=== PATIENT | male | born 1945 | race Hispanic/Latino ===

== ENCOUNTER 2019-01-13 12:31 | Emergency (ER) | payer OTHER ==
[2019-01-13 13:34] LABS: BASOPHILS % (AUTO) 0.4 % (0.0-5.0); EOSINOPHILS % (AUTO) 4.4 % (0.0-8.0); HEMATOCRIT 32.1 % (42-54); LYMPHOCYTES % (AUTO) 16.7 % (21.0-51.0); MEAN CORPUSCULAR HEMOGLOBIN 32.7 pg (27.0-33.0); MEAN CORPUSCULAR HGB CONC 34.3 g/dL (32.0-36.0); MEAN CORPUSCULAR VOLUME 95.3 fL (79-99); MONOCYTES % (AUTO) 6.7 % (3.0-13.0); NEUTROPHILS % (AUTO) 71.8 % (40.0-77.0); PLATELET COUNT (AUTO) 60 K/uL (130-400); RED BLOOD CELL COUNT(AUTO) 3.37 MIL/uL (4.50-6.20); RED CELL DISTRIBUTION WIDTH 15.3 % (11.0-15.5); WHITE BLOOD COUNT (AUTO) 4.7 K/uL (4.8-10.8)
[2019-01-13 13:43] LABS: CREATININE 0.8 mg/dL (0.5-1.5); POTASSIUM 4.2 mmol/L (3.5-5.1)
[2019-01-13 13:47] LABS: BILIRUBIN,DIRECT 0.4 mg/dL (0.0-0.3); BILIRUBIN,TOTAL 1.1 mg/dL (0.2-1.0); TOTAL PROTEIN, SERUM 6.5 g/dL (6.0-8.3)
[2019-01-13 13:48] LABS: INR 1.28 (0.85-1.15); PARTIAL THROMBOPLASTIN TIME 36.4 SEC (26.3-35.5); PROTHROMBIN TIME 13.4 SEC (9.6-11.6)
[2019-01-13 14:05] LABS: B-TYPE NATRIURETIC PEPTIDE 249 pg/mL (0-100)
== END 2019-01-13 15:44 | disposition home or self-care (01) ==
LOC: EDH 12:31
DX: R18.8 Other ascites (principal); K74.60 Unspecified cirrhosis of liver; R06.00 Dyspnea, unspecified; I10 Essential (primary) hypertension
CPT/HCPCS: 36415; 71045; 80048; 80076; 82140; 83880; 84484; 85025; 85610; 85730

== ENCOUNTER 2019-01-14 10:11 | Emergency (ER) | payer OTHER ==
--- NOTE | 2019-01-14 14:00 | NUR ---
U/S GD PARACENTESIS PROCEDURE PERFORMED BY DR Maria Del Rosario PARRISH. PUNCTURE SITE RLQ AND PATIENT TOLERATED PROCEDURE WELL. TOTAL REMOVED 3.8 LITERS OF CLOUDY YELLOW FLUID. END OF PROCEDURE AT 1345. CATHETER REMOVED AND DRESSING APPLIED. NO BLEEDING NOTED. REPORT GIVEN TO LELE HOWE AND PATIENT TRANSPORTED TO ER 16 VIA STRETCHER AT 1400. AAO X3 WITH NO C/O PAIN.
== END 2019-01-14 15:27 | disposition home or self-care (01) ==
LOC: EDH 10:11
DX: R18.8 Other ascites (principal); K74.69 Other cirrhosis of liver; I10 Essential (primary) hypertension
CPT/HCPCS: 49083; 99285; A4215

== ENCOUNTER → 2019-06-04 | Outpatient (CLI) | payer OTHER ==
[~2019-06-04] VITALS: Ht 175.3 cm; Wt 93.0 kg
[~2019-06-04] MED LIST: REGADENOSON 0.4 MG/5 ML PF SYG IVP SCH
== END | disposition home or self-care (01) ==
LOC: SHCH 09:28
PROVIDERS: ATTEND Internal Medicine Cardiovascular Disease
DX: R06.02 Shortness of breath (principal)
CPT/HCPCS: 78452; 93017; 96374; A9500 ×2; J2785

== ENCOUNTER → 2019-06-08 | Outpatient (CLI) | payer OTHER | END | disposition home or self-care (01) | LOC: SHCH 13:11 | PROVIDERS: ATTEND Internal Medicine Cardiovascular Disease | DX: I08.0 Rheumatic disorders of both mitral and aortic valves (principal) | CPT/HCPCS: 93306 ==

== ENCOUNTER → 2019-08-15 | Outpatient (CLI) | payer OTHER ==
[~2019-08-15] VITALS: Ht 175.3 cm; Wt 93.9 kg
[~2019-08-15] MED LIST changes: +BUDE10.26 IH; +CALC-190 PO; +CEFAZOLIN SODIUM 1 GM VIAL IVP SCH; +CETI10TA57 PO; +CYAN100099 PO; +FERS325 PO; +FINA5TAB41 PO; +FLUT16H NS; +FURO40TA5 PO; +HYDR-3894 PO; +LACHLOT TP; +LACT10SO PO; +LEVO75TA10 PO; +LIDOCAINE PATCH TP; +MONT10TA26 PO; +PANT40TA25 PO; +PROP20TA7 PO; -REGADENOSON 0.4 MG/5 ML PF SYG IVP SCH; +SPIR100T5 PO; +TIOT18CA3 IH; +VITAMIN D PO
[2019-08-15 12:15] LABS: BASOPHILS % (AUTO) 0.6 % (0.0-5.0); EOSINOPHILS % (AUTO) 1.7 % (0.0-8.0); HEMATOCRIT 37.9 % (42-54); LYMPHOCYTES % (AUTO) 8.6 % (21.0-51.0); MEAN CORPUSCULAR HEMOGLOBIN 32.8 pg (27.0-33.0); MEAN CORPUSCULAR VOLUME 96.4 fL (79-99); MONOCYTES % (AUTO) 14.9 % (3.0-13.0); NEUTROPHILS % (AUTO) 69.9 % (40.0-77.0); PLATELET COUNT (AUTO) 50 K/uL (130-400); RED BLOOD CELL COUNT(AUTO) 3.93 MIL/uL (4.50-6.20); RED CELL DISTRIBUTION WIDTH 14.8 % (11.0-15.5); WHITE BLOOD COUNT (AUTO) 7.9 K/uL (4.8-10.8)
[2019-08-15 12:22] LABS: INR 1.29 (0.85-1.15); PROTHROMBIN TIME 13.4 SEC (9.6-11.6)
[2019-08-15 12:24] VITALS: BP 100/56
--- NOTE | 2019-08-16 17:53 | NUR ---
REPORTED ABNORMAL LABS OF PLT [address] SALAZAR'Young, PER MD, PROCEDURE IS CANCELLED, INSTRUCTED TO CALL PT INFORM HIM OF CANCELLATION, PT IS TO SEE PRIMARY DR. POLK AT [facility] AND HAVE PLATELETS INCREASED TO 80,000- 90,[address] SALAZAR'Young FOR PROCEDURE. CALLED AT AT 1750, ALL INFORMATION GIVEN, PT STATED UNDERSTANDING.
== END | disposition home or self-care (01) ==
LOC: DAH 10:00 → EDSTATUS 08-16 10:00
PROVIDERS: ATTEND Orthopaedic Surgery
DX: M17.11 Unilateral primary osteoarthritis, right knee (principal); I10 Essential (primary) hypertension; I08.0 Rheumatic disorders of both mitral and aortic valves
CPT/HCPCS: 36415; 85025; 85610; 87641

== ENCOUNTER 2019-11-15 10:00 | Inpatient (IN) | payer OTHER ==
[~2019-11-15] VITALS: Ht 172.7 cm; Wt 105.1 kg
[~2019-11-15 10:00] MED LIST changes: -BUDE10.26 IH; -CEFAZOLIN SODIUM 1 GM VIAL IVP SCH; -CETI10TA57 PO; -FURO40TA5 PO; -HYDR-3894 PO; +HYDR-4419 PO; -LACHLOT TP; -LIDOCAINE PATCH TP; -PANT40TA25 PO; +PANT40TA54 PO; -VITAMIN D PO
[2019-11-15 11:16] LABS: APPEARANCE,URINE Clear (CLEAR); BILIRUBIN,URINE Small (NEGATIVE); COLOR,URINE Dark Yellow (YELLOW); GLUCOSE, URINE (UA) Negative (NEGATIVE); KETONES,URINE Trace mg/dL (NEGATIVE); LEUKOCYTE ESTERASE ,URINE Negative (NEGATIVE); NITRATE,URINE Negative (NEGATIVE); OCCULT BLOOD,URINE Negative (NEGATIVE); PH,URINE 5.5 (5.0-8.0); PROTEIN,URINE Negative (NEGATIVE)
[2019-11-15 11:26] LABS: BASOPHILS % (AUTO) 0.6 % (0.0-5.0); CREATININE 1.6 mg/dL (0.5-1.5); EOSINOPHILS % (AUTO) 4.5 % (0.0-8.0); HEMATOCRIT 35.3 % (42-54); LYMPHOCYTES % (AUTO) 16.3 % (21.0-51.0); MEAN CORPUSCULAR HEMOGLOBIN 35.4 pg (27.0-33.0); MEAN CORPUSCULAR HGB CONC 34.8 g/dL (32.0-36.0); MEAN CORPUSCULAR VOLUME 101.7 fL (79-99); MONOCYTES % (AUTO) 9.1 % (3.0-13.0); NEUTROPHILS % (AUTO) 66.4 % (40.0-77.0); PLATELET COUNT (AUTO) 68 K/uL (130-400); POTASSIUM 4.5 mmol/L (3.5-5.1); RED BLOOD CELL COUNT(AUTO) 3.47 MIL/uL (4.50-6.20); RED CELL DISTRIBUTION WIDTH 14.9 % (11.0-15.5); WHITE BLOOD COUNT (AUTO) 9.4 K/uL (4.8-10.8)
[2019-11-15 11:53] LABS: INR 1.17 (0.85-1.15); PARTIAL THROMBOPLASTIN TIME 29.9 SEC (26.3-35.5); PROTHROMBIN TIME 12.6 SEC (9.6-11.6)
[2019-11-15 12:26] LABS: BACTERIA,URINE Few /HPF (None Seen); SQUAMOUS EPITHELIAL CELL,UR 0-2 /HPF (0-2)
[2019-11-15 12:27] LABS: RBC,URINE None Seen /HPF (0-1); WBC,URINE None Seen /HPF (0-1)
[2019-11-19 11:59] VITALS: BP 111/56
--- NOTE | 2019-11-19 13:10 | NUR ---
RE: ABNORMAL LABS INFORMED DR VILLA REGARDING PT 12.6/INR 1.17/PTT 29.9, PLT 68, HGB 12.3/HGT 35.3, BUN 22, CREAT 1.6. RECEIVED ORDERS FOR 1 UNIT SINGLE DONOR PLATELETS TO BE AVAILABLE IN OR.
[2019-11-19] MEDS ORDERED: TAMS-1 PO (16:31)
[2019-11-19] MEDS ORDERED: LINA145C PO (16:31)
[2019-11-19] MEDS ORDERED: VITAMIN D3 PO (16:31)
[2019-11-19] MEDS ORDERED: BUDE10.2 IH (16:31)
[2019-11-19] MEDS ORDERED: DICLOFENAC TP (16:31)
[2019-11-19] MEDS ORDERED: FOLI0.8T PO (16:33)
[2019-11-19] MEDS ORDERED: PROCTOCM PR (16:33)
[2019-11-20] VITALS (25 sets, daily range): BP systolic 93–139; BP diastolic 52–78
[2019-11-20] MEDS: CEFAZOLIN SODIUM 1 GM VIAL IVP SCH ×3 (06:00→19:57)
[2019-11-20] MEDS ORDERED: LACTATED RINGERS 1000ML 1,000 ML IV ONE (08:58)
[2019-11-20] MEDS ORDERED: TRANEXAMIC ACID 1000MG/10ML ONE (10:37)
[2019-11-20] MEDS ORDERED: CEFAZOLIN SODIUM 1 GM VIAL ONE ×4 (10:37)
[2019-11-20 10:39] LABS: HEMATOCRIT 33.4 % (42-54); MEAN CORPUSCULAR HEMOGLOBIN 35.6 pg (27.0-33.0); MEAN CORPUSCULAR VOLUME 101.5 fL (79-99); RED BLOOD CELL COUNT(AUTO) 3.29 MIL/uL (4.50-6.20); RED CELL DISTRIBUTION WIDTH 14.6 % (11.0-15.5); WHITE BLOOD COUNT (AUTO) 6.4 K/uL (4.8-10.8)
[2019-11-20 10:48] LABS: CREATININE 1.2 mg/dL (0.5-1.5); POTASSIUM 5.1 mmol/L (3.5-5.1)
[2019-11-20 10:52] LABS: ALBUMIN 2.8 g/dL (3.5-5.0); BILIRUBIN,TOTAL 1.3 mg/dL (0.2-1.0); TOTAL PROTEIN, SERUM 6.2 g/dL (6.0-8.3)
[2019-11-20] MEDS ORDERED: SODIUM CHLORIDE 0.9% 1000ML 1,000 ML IV ONE (11:26)
[2019-11-20] MEDS ORDERED: KETAMINE 50MG/ML SYRINGE 50 MG/ML DISP.SYRIN IV ONE (12:12)
[2019-11-20] MEDS ORDERED: SUCCINYLCHOLINE CHLORIDE 20 MG/ML 10 ML VIAL ONE (12:13)
[2019-11-20] MEDS ORDERED: LIDOCAINE PF 2% 5ML ABBOJECT ONE (12:13)
[2019-11-20] MEDS ORDERED: PROPOFOL 10 MG/ML 20ML VIAL IV ONE (12:13)
[2019-11-20] MEDS ORDERED: ROCURONIUM 10MG/1ML SYR 10 MG/ML ML ONE (12:14)
[2019-11-20] MEDS ORDERED: PHENYLEPHRINE HCL 10 MG/ML 1ML VIAL IV ONE ×2 (12:35→13:01)
[2019-11-20] MEDS ORDERED: EPHEDRINE SULFATE 50 MG/ML AMPULE ONE (12:49)
[2019-11-20] MEDS ORDERED: FENTANYL CITRATE PF 50 MCG/1 ML 2ML VIAL ONE (14:02)
[2019-11-20] MEDS ORDERED: NEOSTIGMINE 5MG/5ML SYR IV ONE (14:29)
[2019-11-20] MEDS ORDERED: ONDANSETRON HCL 4 MG/2 ML VIAL ONE (14:29)
[2019-11-20] MEDS ORDERED: GLYCOPYRROLATE 1 MG/5 ML SYRINGE ONE (14:29)
[2019-11-20] MEDS ORDERED: POTASSIUM CHLORIDE 20 MEQ ERTAB PO PRN (14:30)
[2019-11-20] MEDS ORDERED: ONDANSETRON HCL 4 MG/2 ML VIAL IVP PRN (14:30)
[2019-11-20] MEDS ORDERED: FERROUS FUMARATE 324 MG TABLET PO PRN (14:30)
[2019-11-20] MEDS: ACETAMINOPHEN EXTRA STRENGTH 500 MG TABLET PO SCH ×2 (14:30→23:20)
[2019-11-20] MEDS ORDERED: TRAMADOL HCL 50 MG TABLET PO PRN (14:30)
[2019-11-20] MEDS ORDERED: LIDOCAINE HCL-MPF 1% 2ML VIAL IV PRN (14:30)
[2019-11-20] MEDS ORDERED: POTASSIUM CHLORIDE 10% ELIXIR 20 MEQ/15 ML UDCUP PO PRN (14:30)
[2019-11-20] MEDS ORDERED: DiphenhydrAMINE HCL 50 MG/ML VIAL IVP PRN (14:30)
[2019-11-20] MEDS ORDERED: POTASSIUM CHLORIDE 20MEQ/100ML 100 ML IV PRN (14:30)
--- NOTE | 2019-11-20 15:25 | NUR ---
1 gram of tranexamic acid transfusing at this time
[2019-11-20] MEDS ORDERED: MEPERIDINE-PF 25 MG/ML SYG ONE (15:40)
[2019-11-20] MEDS: SODIUM CHLORIDE 0.9% 1000ML 1,000 ML IV SCH (16:46)
[2019-11-20] MEDS: BUDESONIDE 0.5 MG/2 ML INH IH SCH (17:27)
[2019-11-20] MEDS: IPRATROPIUM 0.5 MG/2.5 ML INH IH SCH ×2 (17:27→23:05)
[2019-11-20] MEDS: OXYCODONE HCL 5 MG TAB PO PRN ×2 (17:46→23:20)
[2019-11-20] MEDS: CELECOXIB 200 MG CAP PO SCH (19:58)
[2019-11-20] MEDS: PREGABALIN 25 MG CAP PO SCH (19:58)
[2019-11-20] MEDS: MONTELUKAST SODIUM 10 MG TAB PO SCH (19:58)
[2019-11-20] MEDS: PROPRANOLOL HCL 20 MG TAB PO SCH (19:58)
[2019-11-20] MEDS: CALCIUM 600 + VITAMIN D 400 TABLET PO SCH (19:58)
[2019-11-20] MEDS: ASPIRIN 81MG TAB.CHEW PO SCH (19:58)
[2019-11-20] MEDS: HYDROCORTISONE 20 MG TABLET PO SCH (19:58)
[2019-11-20] MEDS: TAMSULOSIN HCL 0.4 MG CAP.ER.24H PO SCH (19:58)
[2019-11-20] MEDS: LACTULOSE 20 GM/30 ML UDCUP PO SCH (19:59)
[2019-11-20] MEDS: **HM**(Folic Acid 0.8 MG PO SCH (20:07)
[2019-11-20] MEDS: ALBUTEROL SULFATE 0.083% 2.5 MG/3 ML INH IH SCH (23:05)
[2019-11-20] MEDS: HYDROMORPHONE HCL 2 MG/ML VIAL IVP PRN (23:43)
[2019-11-21] VITALS (7 sets, daily range): BP systolic 77–121; BP diastolic 50–76
[2019-11-21] MEDS: SODIUM CHLORIDE 0.9% 1000ML 1,000 ML IV SCH ×2 (00:30→10:30)
--- NOTE | 2019-11-21 00:50 | NUR ---
DANGLED EDGE PATIENT WAS DANGLED AT THE EDGE OF THE BED PER PROTOCOL AND TO SEE IF HE COULD VOID. PATIENT WAS UNABLE TO VOID BUT TOLERATED DANGLING AT EDGE OF BED WELL.
--- NOTE | 2019-11-21 01:00 | NUR ---
NO VOID PATIENT UNABLE TO VOID SO HE WAS SCANNED AND SHOWED 580 MLS. PATIENT WAS THEN STRAIGHT CATHETERIZED AND DRAINED 600ML OF LIGHT ROBIN URINE. PATIENT DID FEEL BETTER AFTER THIS.
[2019-11-21] MEDS: HYDROMORPHONE HCL 2 MG/ML VIAL IVP PRN ×5 (01:34→22:35)
[2019-11-21] MEDS: OXYCODONE HCL 5 MG TAB PO PRN ×3 (02:32→21:56)
[2019-11-21] MEDS: CEFAZOLIN SODIUM 1 GM VIAL IVP SCH (02:32)
[2019-11-21 04:30] LABS: CREATININE 1.3 mg/dL (0.5-1.5)
[2019-11-21 04:45] LABS: HEMATOCRIT 30.1 % (42-54); MEAN CORPUSCULAR HEMOGLOBIN 35.5 pg (27.0-33.0); MEAN CORPUSCULAR HGB CONC 34.9 g/dL (32.0-36.0); MEAN CORPUSCULAR VOLUME 101.7 fL (79-99); RED BLOOD CELL COUNT(AUTO) 2.96 MIL/uL (4.50-6.20); RED CELL DISTRIBUTION WIDTH 14.7 % (11.0-15.5); WHITE BLOOD COUNT (AUTO) 10.2 K/uL (4.8-10.8)
[2019-11-21] MEDS: LEVOTHYROXINE 150 MCG TABLET PO SCH (06:11)
[2019-11-21] MEDS: ACETAMINOPHEN EXTRA STRENGTH 500 MG TABLET PO SCH ×3 (06:12→22:30)
[2019-11-21] MEDS: IPRATROPIUM 0.5 MG/2.5 ML INH IH SCH ×4 (06:26→23:26)
[2019-11-21] MEDS: ALBUTEROL SULFATE 0.083% 2.5 MG/3 ML INH IH SCH ×4 (06:26→23:26)
[2019-11-21] MEDS: BUDESONIDE 0.5 MG/2 ML INH IH SCH ×2 (06:42→18:33)
[2019-11-21] MEDS ORDERED: SODIUM POLYSTYRENE SULFONATE 15 GM/60 ML ML PO SCH (07:45)
[2019-11-21] MEDS ORDERED: DICLOFENAC 1% TP PRN (09:00)
[2019-11-21] MEDS: VITAMIN D3 1000 MG PO SCH (09:00)
[2019-11-21] MEDS: **HM**(Linaclotide (Linzess) 145 MCG PO SCH (09:00)
[2019-11-21] MEDS ORDERED: APPL PO SCH (09:00)
[2019-11-21] MEDS ORDERED: HYDROCORTISONE PO SCH (09:00)
[2019-11-21] MEDS: FLUTICASONE PROPIONATE 50MCG/SPRAY 16 GM BOTTLE NS SCH (09:39)
[2019-11-21] MEDS: SPIRONOLACTONE 25 MG TAB PO SCH (09:45)
[2019-11-21] MEDS: CELECOXIB 200 MG CAP PO SCH ×2 (09:46→19:47)
[2019-11-21] MEDS: PREGABALIN 25 MG CAP PO SCH ×2 (09:46→19:47)
[2019-11-21] MEDS: HYDROCORTISONE 20 MG TABLET PO SCH ×2 (09:46→19:47)
[2019-11-21] MEDS: CALCIUM 600 + VITAMIN D 400 TABLET PO SCH ×2 (09:46→19:47)
[2019-11-21] MEDS: PROPRANOLOL HCL 20 MG TAB PO SCH ×2 (09:47→19:47)
[2019-11-21] MEDS: CYANOCOBALAMIN (VITAMIN B-12) 1,000 MCG TABLET PO SCH (09:47)
[2019-11-21] MEDS: PANTOPRAZOLE SODIUM 40 MG TABLET.DR PO SCH (09:47)
[2019-11-21] MEDS: FERROUS SULFATE 325 MG TABLET.DR PO SCH (09:47)
[2019-11-21] MEDS: FINASTERIDE 5 MG TABLET PO SCH (09:47)
[2019-11-21] MEDS: ASPIRIN 81MG TAB.CHEW PO SCH ×2 (09:47→19:47)
[2019-11-21] MEDS: LACTULOSE 20 GM/30 ML UDCUP PO SCH ×3 (09:47→20:39)
[2019-11-21] MEDS: TAMSULOSIN HCL 0.4 MG CAP.ER.24H PO SCH ×2 (09:47→19:47)
--- NOTE | 2019-11-21 11:28 | NUR ---
DC PLAN VISITED WITH PATIENT. WAS SLEEPING TRIED CALLING NO ANSWER. TRIED PATIENT AGAIN WOKE UP. LIVES WITH SPOUSE. INDEPENDENT ABLE TO PERFORM ADL'S. PATIENT HAS WALKER AND BEDSIDE COMMODE. NO HOME HEALTH. GAVE PERMISSION FOR TO SPEAK TO [place] REGARDING HOME HEALTH. EXPLAINED THAT [place] WOULD ASSIGN HOME HEALTH AND WOULD LET US KNOW WHICH COMPANY. VERBALIZED UNDERSTANDING. CALLED [place] [facility] SAID RECEIVED WILL WORK ON IT TODAY. Addendum: 11/21/19 at 1131 by ERYN GOODSON RN CM Amended: Links added.
--- NOTE | 2019-11-21 15:00 | NUR ---
SPOKE TO DR. VILLA REGARDING BLADDER SCAN RESULTS ON 286ML AND AMMONIA RESULTS. PER DR. VILLA, CONSULT MEDICAL MANAGEMENT FOR HYPERAMMONEMIA.
--- NOTE | 2019-11-21 15:06 | NUR ---
Notified Dr. Jarrett of consult from Dr. Reyes for medical management of liver cirrhosis and hyperammonemia.
--- NOTE | 2019-11-21 18:05 | NUR ---
MESSAGE LEFT FOR DR. VILLA TO REPORT POTASSIUM LEVEL OF 4.9 AND REPORT PATIENT HAS NOT VOIDED SINCE THIS AM. NO ANSWER AT THIS TIME.
[2019-11-21] MEDS: MONTELUKAST SODIUM 10 MG TAB PO SCH (19:47)
[2019-11-21] MEDS: **HM**(Folic Acid 0.8 MG PO SCH (20:39)
[2019-11-22] VITALS (7 sets, daily range): BP systolic 82–108; BP diastolic 53–59
[2019-11-22] MEDS: HYDROMORPHONE HCL 2 MG/ML VIAL IVP PRN ×4 (00:24→06:17)
[2019-11-22] MEDS: LACTULOSE 20 GM/30 ML UDCUP PO SCH ×3 (03:05→20:18)
[2019-11-22] MEDS: OXYCODONE HCL 5 MG TAB PO PRN (03:06)
[2019-11-22 05:25] LABS: BASOPHILS % (AUTO) 0.2 % (0.0-5.0); EOSINOPHILS % (AUTO) 1.7 % (0.0-8.0); HEMATOCRIT 29.3 % (42-54); LYMPHOCYTES % (AUTO) 9.9 % (21.0-51.0); MEAN CORPUSCULAR HEMOGLOBIN 34.1 pg (27.0-33.0); MEAN CORPUSCULAR HGB CONC 33.8 g/dL (32.0-36.0); MONOCYTES % (AUTO) 15.4 % (3.0-13.0); NEUTROPHILS % (AUTO) 70.6 % (40.0-77.0); PLATELET COUNT (AUTO) 55 K/uL (130-400); RED CELL DISTRIBUTION WIDTH 14.8 % (11.0-15.5); WHITE BLOOD COUNT (AUTO) 11.5 K/uL (4.8-10.8)
[2019-11-22 05:31] LABS: CREATININE 2.5 mg/dL (0.5-1.5)
--- NOTE | 2019-11-22 06:01 | NUR ---
NO VOID PATIENT UNABLE TO VOID ON HIS OWN AGAIN SO I BLADDER SCANNED HIM. HIS SCANNED SHOWED 500 MLS THEREFOR PER ORDERS I WAS ABLE TO STRAIGHT CATH HIM AND PULL OUT 500 MLS OF DARK ROBIN URINE. WILL MONITOR PATIENT FOR VOID ONCE MORE.
[2019-11-22] MEDS: ACETAMINOPHEN EXTRA STRENGTH 500 MG TABLET PO SCH ×3 (06:30→20:21)
[2019-11-22] MEDS: BUDESONIDE 0.5 MG/2 ML INH IH SCH ×2 (06:39→19:06)
[2019-11-22] MEDS: IPRATROPIUM 0.5 MG/2.5 ML INH IH SCH ×4 (06:39→23:13)
[2019-11-22] MEDS: ALBUTEROL SULFATE 0.083% 2.5 MG/3 ML INH IH SCH ×4 (06:39→23:13)
[2019-11-22] MEDS: LEVOTHYROXINE 112 MCG TABLET PO SCH (07:39)
[2019-11-22] MEDS: FLUTICASONE PROPIONATE 50MCG/SPRAY 16 GM BOTTLE NS SCH (08:30)
[2019-11-22] MEDS: HYDROCORTISONE 20 MG TABLET PO SCH ×2 (08:31→20:17)
[2019-11-22] MEDS: TAMSULOSIN HCL 0.4 MG CAP.ER.24H PO SCH ×2 (08:31→20:17)
[2019-11-22] MEDS: SPIRONOLACTONE 25 MG TAB PO SCH (08:31)
[2019-11-22] MEDS: PREGABALIN 25 MG CAP PO SCH ×2 (08:31→20:16)
[2019-11-22] MEDS: CYANOCOBALAMIN (VITAMIN B-12) 1,000 MCG TABLET PO SCH (08:32)
[2019-11-22] MEDS: ASPIRIN 81MG TAB.CHEW PO SCH ×2 (08:32→20:17)
[2019-11-22] MEDS: PANTOPRAZOLE SODIUM 40 MG TABLET.DR PO SCH (08:32)
[2019-11-22] MEDS: VITAMIN D3 1000 MG PO SCH (08:32)
[2019-11-22] MEDS: **HM**(Linaclotide (Linzess) 145 MCG PO SCH (08:32)
[2019-11-22] MEDS: CALCIUM 600 + VITAMIN D 400 TABLET PO SCH ×2 (08:32→20:17)
[2019-11-22] MEDS: FERROUS SULFATE 325 MG TABLET.DR PO SCH (08:32)
[2019-11-22] MEDS: PROPRANOLOL HCL 20 MG TAB PO SCH (08:32)
[2019-11-22] MEDS: FINASTERIDE 5 MG TABLET PO SCH (08:32)
[2019-11-22] MEDS: SODIUM CHLORIDE 0.9% 1000ML 1,000 ML IV SCH ×2 (10:04→20:20)
--- NOTE | 2019-11-22 10:23 | NUR ---
DC PLAN SENT PT NOTES CALLED [facility] ANSWER LEFT MESSAGE FOR [facility] HE[facility]. Addendum: 11/22/19 at 1024 by ERYN GOODSON RN CM Amended: Links added.
--- NOTE | 2019-11-22 11:01 | NUR ---
DC PLAN SPOKE TO [place] PATIENT ASSIGNED TO [facility] [phone]. SPOKE TO NURSE SOFI SAID PATIENT IS ACCEPTED. GAVE SPOUSE NUMBER TO CALL IN CASE PATIENT DOES NOT ANSWER ROOM PHONE. PLAN TO START CARE TOMORROW. Addendum: 11/22/19 at 1103 by ERYN GOODSON RN CM Amended: Links added.
[2019-11-22] MEDS: MIDODRINE HCL 5 MG TABLET PO SCH ×5 (12:28→20:23)
[2019-11-22] MEDS ORDERED: ALBUMIN (HUMAN) 25% 50 ML IV SCH (13:00)
[2019-11-22] MEDS: OCTREOTIDE ACETATE 100 MCG/ML AMP SQ SCH ×2 (14:05→20:17)
[2019-11-22] MEDS: **HM**(Folic Acid 0.8 MG PO SCH (20:22)
[2019-11-22] MEDS: MONTELUKAST SODIUM 10 MG TAB PO SCH (20:23)
[2019-11-22 21:39] LABS: CREATININE,URINE RANDOM 318 mg/dL (30-135); SODIUM,URINE RANDOM 17 mmol/l (40-220)
[2019-11-23] MEDS: OXYCODONE HCL 5 MG TAB PO PRN (01:21)
[2019-11-23] MEDS: LACTULOSE 20 GM/30 ML UDCUP PO SCH ×3 (03:21→20:47)
[2019-11-23 03:41] VITALS: BP 119/73
[2019-11-23 04:47] LABS: BASOPHILS % (AUTO) 0.3 % (0.0-5.0); EOSINOPHILS % (AUTO) 2.6 % (0.0-8.0); HEMATOCRIT 25.8 % (42-54); LYMPHOCYTES % (AUTO) 8.9 % (21.0-51.0); MEAN CORPUSCULAR HEMOGLOBIN 35.7 pg (27.0-33.0); MEAN CORPUSCULAR HGB CONC 35.3 g/dL (32.0-36.0); MEAN CORPUSCULAR VOLUME 101.2 fL (79-99); MONOCYTES % (AUTO) 11.9 % (3.0-13.0); NEUTROPHILS % (AUTO) 74.5 % (40.0-77.0); PLATELET COUNT (AUTO) 47 K/uL (130-400); RED BLOOD CELL COUNT(AUTO) 2.55 MIL/uL (4.50-6.20); RED CELL DISTRIBUTION WIDTH 14.6 % (11.0-15.5); WHITE BLOOD COUNT (AUTO) 8.9 K/uL (4.8-10.8)
[2019-11-23 05:01] LABS: INR 1.27 (0.85-1.15); PARTIAL THROMBOPLASTIN TIME 41.5 SEC (26.3-35.5); PROTHROMBIN TIME 13.6 SEC (9.6-11.6)
[2019-11-23 05:06] LABS: ALBUMIN 2.4 g/dL (3.5-5.0); BILIRUBIN,TOTAL 1.3 mg/dL (0.2-1.0); CREATININE 2.5 mg/dL (0.5-1.5); POTASSIUM 5.4 mmol/L (3.5-5.1); TOTAL PROTEIN, SERUM 5.5 g/dL (6.0-8.3)
[2019-11-23 05:19] LABS: PLATELET MORPHOLOGY COMMENT LARGE PLTS PRESENT
[2019-11-23 05:22] LABS: % IRON SATURATION 21.5 % (30-44)
[2019-11-23] MEDS: BUDESONIDE 0.5 MG/2 ML INH IH SCH ×2 (06:35→18:53)
[2019-11-23] MEDS: IPRATROPIUM 0.5 MG/2.5 ML INH IH SCH ×4 (06:35→23:02)
[2019-11-23] MEDS: ALBUTEROL SULFATE 0.083% 2.5 MG/3 ML INH IH SCH ×4 (06:35→23:02)
[2019-11-23] MEDS: LEVOTHYROXINE 150 MCG TABLET PO SCH (06:41)
[2019-11-23] MEDS: CALCIUM CARBONATE 500 MG TABLET PO PRN ×2 (06:42→20:48)
[2019-11-23] MEDS: ACETAMINOPHEN EXTRA STRENGTH 500 MG TABLET PO SCH ×3 (06:43→20:49)
[2019-11-23 08:03] VITALS: BP 108/63
[2019-11-23] MEDS: CALCIUM 600 + VITAMIN D 400 TABLET PO SCH ×2 (08:19→20:47)
[2019-11-23] MEDS: PREGABALIN 25 MG CAP PO SCH ×2 (08:19→20:48)
[2019-11-23] MEDS: CYANOCOBALAMIN (VITAMIN B-12) 1,000 MCG TABLET PO SCH (08:19)
[2019-11-23] MEDS: TAMSULOSIN HCL 0.4 MG CAP.ER.24H PO SCH ×2 (08:19→20:47)
[2019-11-23] MEDS: OCTREOTIDE ACETATE 100 MCG/ML AMP SQ SCH ×3 (08:19→20:50)
[2019-11-23] MEDS: MIDODRINE HCL 5 MG TABLET PO SCH ×7 (08:19→20:51)
[2019-11-23] MEDS: FERROUS SULFATE 325 MG TABLET.DR PO SCH (08:20)
[2019-11-23] MEDS: FLUTICASONE PROPIONATE 50MCG/SPRAY 16 GM BOTTLE NS SCH (08:20)
[2019-11-23] MEDS: HYDROCORTISONE 20 MG TABLET PO SCH ×2 (08:20→20:48)
[2019-11-23] MEDS: VITAMIN D3 1000 MG PO SCH (08:20)
[2019-11-23] MEDS: **HM**(Linaclotide (Linzess) 145 MCG PO SCH (08:20)
[2019-11-23] MEDS: ASPIRIN 81MG TAB.CHEW PO SCH ×2 (08:20→20:47)
[2019-11-23] MEDS: PANTOPRAZOLE SODIUM 40 MG TABLET.DR PO SCH (08:20)
[2019-11-23 12:28] VITALS: BP 110/61
[2019-11-23] MEDS ORDERED: COMPOUND IV MISC 1 EACH IVSOLN MISC PRN (13:00)
[2019-11-23] MEDS: SODIUM CHLORIDE 0.9% 1000ML 1,000 ML IV SCH (13:35)
--- NOTE | 2019-11-23 14:45 | NUR ---
ATTEMPTED TO INCREASE GAIT HOWEVER PATIENT'S COGNITION AND ABILITY TO FOLLOW COMMANDS IMPAIRED TODAY. PHYSICALLY, PATIENT LACKS ENDURANCE TO INCREASE GAIT DISTANCE. SPOKE TO TANGELA, CASE MANAGEMENT, PT RECOMMENDS AN ACUTE REHAB FACILITY AT THIS TIME. Addendum: 11/23/19 at 1450 by KAMRON ALDRICH PT Amended: Links added.
[2019-11-23 16:15] VITALS: BP 121/66
[2019-11-23] MEDS: ALBUMIN (HUMAN) 25% 50 ML IV SCH (16:16)
[2019-11-23 19:44] VITALS: BP 109/65
[2019-11-23] MEDS: MONTELUKAST SODIUM 10 MG TAB PO SCH (20:48)
[2019-11-23] MEDS: **HM**(Folic Acid 0.8 MG PO SCH (20:49)
[2019-11-23 23:55] VITALS: BP 110/69
[2019-11-24 04:00] VITALS: BP 146/89
[2019-11-24 04:29] LABS: MEAN CORPUSCULAR HEMOGLOBIN 35.4 pg (27.0-33.0); MEAN CORPUSCULAR HGB CONC 34.6 g/dL (32.0-36.0); MEAN CORPUSCULAR VOLUME 102.4 fL (79-99); PLATELET COUNT (AUTO) 54 K/uL (130-400); RED BLOOD CELL COUNT(AUTO) 2.54 MIL/uL (4.50-6.20); RED CELL DISTRIBUTION WIDTH 14.6 % (11.0-15.5); WHITE BLOOD COUNT (AUTO) 7.2 K/uL (4.8-10.8)
[2019-11-24] MEDS: LACTULOSE 20 GM/30 ML UDCUP PO SCH ×2 (04:29→20:51)
[2019-11-24 04:43] LABS: BAND NEUTROPHILS % (MANUAL) 4 % (0-2); LYMPHOCYTES % (MANUAL) 13 % (22-44); MONOCYTES % (MANUAL) 7 % (2-9); SEGMENTED NEUTROPHILS % 76 % (40-70)
[2019-11-24 04:44] LABS: MAN.DIFF COMMENT-IMPRESSION MANUAL DIFFERENTIAL; PLATELET MORPHOLOGY COMMENT DECREASED
[2019-11-24 04:48] LABS: ALBUMIN 2.6 g/dL (3.5-5.0); BILIRUBIN,TOTAL 1.2 mg/dL (0.2-1.0); CREATININE 2.3 mg/dL (0.5-1.5); POTASSIUM 4.8 mmol/L (3.5-5.1); TOTAL PROTEIN, SERUM 5.9 g/dL (6.0-8.3)
[2019-11-24] MEDS: LEVOTHYROXINE 112 MCG TABLET PO SCH (05:41)
[2019-11-24] MEDS: ACETAMINOPHEN EXTRA STRENGTH 500 MG TABLET PO SCH ×3 (05:56→22:31)
[2019-11-24] MEDS: SODIUM CHLORIDE 0.9% 1000ML 1,000 ML IV SCH (06:45)
[2019-11-24] MEDS: ALBUTEROL SULFATE 0.083% 2.5 MG/3 ML INH IH SCH ×2 (06:52→18:21)
[2019-11-24] MEDS: BUDESONIDE 0.5 MG/2 ML INH IH SCH ×2 (06:52→18:43)
[2019-11-24] MEDS: IPRATROPIUM 0.5 MG/2.5 ML INH IH SCH ×2 (06:52→18:20)
[2019-11-24 08:00] VITALS: BP 130/73
[2019-11-24] MEDS: **HM**(Linaclotide (Linzess) 145 MCG PO SCH (09:00)
[2019-11-24] MEDS: PREGABALIN 25 MG CAP PO SCH ×2 (09:00→21:44)
[2019-11-24] MEDS: MIDODRINE HCL 5 MG TABLET PO SCH ×4 (09:00→21:14)
[2019-11-24] MEDS: VITAMIN D3 1000 MG PO SCH (09:00)
[2019-11-24] MEDS: FERROUS SULFATE 325 MG TABLET.DR PO SCH (10:13)
[2019-11-24] MEDS: CALCIUM 600 + VITAMIN D 400 TABLET PO SCH ×2 (10:13→20:49)
[2019-11-24] MEDS: ASPIRIN 81MG TAB.CHEW PO SCH ×2 (10:13→20:49)
[2019-11-24] MEDS: IRON SUCROSE COMPLEX 100 MG in SODIUM CHLORIDE 0.9% 50 ML IV SCH (10:13)
[2019-11-24] MEDS: PANTOPRAZOLE SODIUM 40 MG TABLET.DR PO SCH (10:14)
[2019-11-24] MEDS: OCTREOTIDE ACETATE 100 MCG/ML AMP SQ SCH ×2 (10:14→21:13)
[2019-11-24] MEDS: HYDROCORTISONE 20 MG TABLET PO SCH ×2 (10:14→20:50)
[2019-11-24] MEDS: TAMSULOSIN HCL 0.4 MG CAP.ER.24H PO SCH ×2 (10:14→20:49)
[2019-11-24] MEDS: CYANOCOBALAMIN (VITAMIN B-12) 1,000 MCG TABLET PO SCH (10:14)
[2019-11-24] MEDS: FLUTICASONE PROPIONATE 50MCG/SPRAY 16 GM BOTTLE NS SCH (10:15)
[2019-11-24 11:00] VITALS: BP_SYST 123; BP_SYST 135; BP_DIAS 71
[2019-11-24] MEDS: ALBUMIN (HUMAN) 25% 50 ML IV SCH (14:24)
[2019-11-24 19:37] VITALS: BP 107/61
[2019-11-24] MEDS: MONTELUKAST SODIUM 10 MG TAB PO SCH (20:49)
[2019-11-24] MEDS: **HM**(Folic Acid 0.8 MG PO SCH (20:52)
[2019-11-24 23:21] VITALS: BP 123/62
[2019-11-25] MEDS: ALBUTEROL SULFATE 0.083% 2.5 MG/3 ML INH IH SCH ×5 (00:10→23:23)
[2019-11-25] MEDS: IPRATROPIUM 0.5 MG/2.5 ML INH IH SCH ×5 (00:10→23:23)
[2019-11-25] MEDS: SODIUM CHLORIDE 0.9% 1000ML 1,000 ML IV SCH ×2 (02:45→22:45)
[2019-11-25 03:06] VITALS: BP 112/65
[2019-11-25 04:46] LABS: BASOPHILS % (AUTO) 0.5 % (0.0-5.0); EOSINOPHILS % (AUTO) 4.2 % (0.0-8.0); HEMATOCRIT 24.6 % (42-54); LYMPHOCYTES % (AUTO) 12.7 % (21.0-51.0); MEAN CORPUSCULAR HEMOGLOBIN 34.9 pg (27.0-33.0); MEAN CORPUSCULAR HGB CONC 34.1 g/dL (32.0-36.0); MEAN CORPUSCULAR VOLUME 102.1 fL (79-99); MONOCYTES % (AUTO) 12.7 % (3.0-13.0); NEUTROPHILS % (AUTO) 66.7 % (40.0-77.0); PLATELET COUNT (AUTO) 39 K/uL (130-400); RED BLOOD CELL COUNT(AUTO) 2.41 MIL/uL (4.50-6.20); RED CELL DISTRIBUTION WIDTH 14.5 % (11.0-15.5); WHITE BLOOD COUNT (AUTO) 4.1 K/uL (4.8-10.8)
[2019-11-25 05:03] LABS: ALBUMIN 2.6 g/dL (3.5-5.0); BILIRUBIN,TOTAL 1.5 mg/dL (0.2-1.0); CREATININE 1.7 mg/dL (0.5-1.5); POTASSIUM 4.5 mmol/L (3.5-5.1); TOTAL PROTEIN, SERUM 5.7 g/dL (6.0-8.3)
[2019-11-25] MEDS: LEVOTHYROXINE 150 MCG TABLET PO SCH (06:09)
[2019-11-25] MEDS: OCTREOTIDE ACETATE 100 MCG/ML AMP SQ SCH ×3 (06:10→19:39)
[2019-11-25] MEDS: MIDODRINE HCL 5 MG TABLET PO SCH ×4 (06:11→19:39)
[2019-11-25] MEDS: ACETAMINOPHEN EXTRA STRENGTH 500 MG TABLET PO SCH ×3 (06:25→19:38)
[2019-11-25] MEDS: BUDESONIDE 0.5 MG/2 ML INH IH SCH ×2 (06:54→18:41)
[2019-11-25 08:29] VITALS: BP 113/70
[2019-11-25] MEDS: ALBUMIN (HUMAN) 25% 50 ML IV SCH (08:33)
[2019-11-25] MEDS: LACTULOSE 20 GM/30 ML UDCUP PO SCH ×2 (08:40→19:39)
[2019-11-25] MEDS: CYANOCOBALAMIN (VITAMIN B-12) 1,000 MCG TABLET PO SCH (08:40)
[2019-11-25] MEDS: TAMSULOSIN HCL 0.4 MG CAP.ER.24H PO SCH ×2 (08:41→19:38)
[2019-11-25] MEDS: CALCIUM 600 + VITAMIN D 400 TABLET PO SCH ×2 (08:41→19:38)
[2019-11-25] MEDS: HYDROCORTISONE 20 MG TABLET PO SCH ×2 (08:41→19:38)
[2019-11-25] MEDS: OXYCODONE HCL 5 MG TAB PO PRN ×2 (08:41→19:39)
[2019-11-25] MEDS: FERROUS SULFATE 325 MG TABLET.DR PO SCH (08:41)
[2019-11-25] MEDS: ASPIRIN 81MG TAB.CHEW PO SCH ×2 (08:41→19:38)
[2019-11-25] MEDS: PANTOPRAZOLE SODIUM 40 MG TABLET.DR PO SCH (08:41)
[2019-11-25] MEDS: IRON SUCROSE COMPLEX 100 MG in SODIUM CHLORIDE 0.9% 50 ML IV SCH (08:42)
[2019-11-25] MEDS: FLUTICASONE PROPIONATE 50MCG/SPRAY 16 GM BOTTLE NS SCH (08:44)
[2019-11-25] MEDS: VITAMIN D3 1000 MG PO SCH (08:46)
[2019-11-25] MEDS: **HM**(Linaclotide (Linzess) 145 MCG PO SCH (08:47)
[2019-11-25 11:36] VITALS: BP 94/62
[2019-11-25] MEDS: PREGABALIN 25 MG CAP PO SCH ×2 (15:02→19:38)
[2019-11-25 15:52] VITALS: BP 116/65
--- NOTE | 2019-11-25 18:50 | NUR ---
PT HAD 4 SEMI LIQUID BOWEL MOVEMENTS TODAY
[2019-11-25 19:30] VITALS: BP 129/62
[2019-11-25] MEDS: MONTELUKAST SODIUM 10 MG TAB PO SCH (19:38)
[2019-11-25] MEDS: **HM**(Folic Acid 0.8 MG PO SCH (19:40)
[2019-11-25] MEDS: HYDROMORPHONE HCL 2 MG/ML VIAL IVP PRN ×2 (20:51→22:30)
[2019-11-25 23:59] VITALS: BP 118/62
[2019-11-26] MEDS: HYDROMORPHONE HCL 2 MG/ML VIAL IVP PRN ×4 (00:16→06:15)
[2019-11-26 04:00] VITALS: BP 122/82
[2019-11-26 05:40] LABS: CREATININE 1.5 mg/dL (0.5-1.5); POTASSIUM 4.9 mmol/L (3.5-5.1)
--- NOTE | 2019-11-26 05:51 | NUR ---
NO VOID PATIENT UNABLE TO VOID POST OLEARY REMOVAL. PATIENT'S BLADDER WAS SCANNED TO SHOW 453 ML IN BLADDER. PATIENT COMPLAINS OF DISCOMFORT TO BLADDER AREA SO PATIENT WAS STRAIGHT CATHETERIZED AND REMOVED 700 ML REMOVED.
[2019-11-26 05:54] LABS: HEMATOCRIT 25.6 % (42-54)
[2019-11-26] MEDS: LEVOTHYROXINE 112 MCG TABLET PO SCH (06:14)
[2019-11-26] MEDS: OCTREOTIDE ACETATE 100 MCG/ML AMP SQ SCH ×2 (06:14→14:06)
[2019-11-26] MEDS: MIDODRINE HCL 5 MG TABLET PO SCH ×4 (06:14→21:16)
[2019-11-26] MEDS: ALBUTEROL SULFATE 0.083% 2.5 MG/3 ML INH IH SCH ×3 (06:18→18:38)
[2019-11-26] MEDS: IPRATROPIUM 0.5 MG/2.5 ML INH IH SCH ×3 (06:18→18:38)
[2019-11-26] MEDS: ACETAMINOPHEN EXTRA STRENGTH 500 MG TABLET PO SCH ×2 (06:30→14:06)
[2019-11-26] MEDS: BUDESONIDE 0.5 MG/2 ML INH IH SCH ×2 (06:31→18:51)
[2019-11-26] MEDS: FLUTICASONE PROPIONATE 50MCG/SPRAY 16 GM BOTTLE NS SCH (08:29)
[2019-11-26] MEDS: LACTULOSE 20 GM/30 ML UDCUP PO SCH ×2 (08:29→21:14)
[2019-11-26] MEDS: HYDROCORTISONE 20 MG TABLET PO SCH ×2 (08:30→21:15)
[2019-11-26] MEDS: PREGABALIN 25 MG CAP PO SCH ×2 (08:30→21:15)
[2019-11-26] MEDS: CYANOCOBALAMIN (VITAMIN B-12) 1,000 MCG TABLET PO SCH (08:30)
[2019-11-26] MEDS: FERROUS SULFATE 325 MG TABLET.DR PO SCH (08:31)
[2019-11-26] MEDS: PANTOPRAZOLE SODIUM 40 MG TABLET.DR PO SCH (08:31)
[2019-11-26] MEDS: CALCIUM 600 + VITAMIN D 400 TABLET PO SCH ×2 (08:31→21:15)
[2019-11-26] MEDS: TAMSULOSIN HCL 0.4 MG CAP.ER.24H PO SCH ×2 (08:31→21:15)
[2019-11-26] MEDS: ASPIRIN 81MG TAB.CHEW PO SCH ×2 (08:32→21:15)
[2019-11-26] MEDS: **HM**(Linaclotide (Linzess) 145 MCG PO SCH (08:33)
[2019-11-26] MEDS: VITAMIN D3 1000 MG PO SCH (08:33)
[2019-11-26] MEDS: IRON SUCROSE COMPLEX 100 MG in SODIUM CHLORIDE 0.9% 50 ML IV SCH (08:33)
[2019-11-26 08:40] VITALS: BP 126/76
[2019-11-26] MEDS: OXYCODONE HCL 5 MG TAB PO PRN (08:41)
--- NOTE | 2019-11-26 10:00 | NUR ---
RE: INSERTION OF OLEARY CATHETER PER DR. VILLA. EXPLAINED PROCEDURE OF INSERTING F/C. PT VERBALIZED UNDERSTANDING. F/C INSERTED UTILIZING STERILE TECHNIQUE. PT TOLERATED PROCEDURE WELL. OLEARY BAG DRAIN WITH 400ML YELLOW URINE. WILL CONTINUE TO MONITOR.
[2019-11-26 11:43] VITALS: BP 122/66
--- NOTE | 2019-11-26 14:35 | NUR ---
CALLED DR. FARLEY OFFICE/CONSULT CALLED IN THIS MORNING SPOKE WITH VIKTOR. EXPLAINED TO HER REASON FOR CONSULT AND PT TO BE DISCHARGED TO DAY. VIKTOR SAID DR. DAVIS "IS AWARE OF THIS CONSULT AND HE WILL BE GOING IN" TO SEE THE PATIENT. WILL CONTINUE TO MONITOR.
--- NOTE | 2019-11-26 16:27 | NUR ---
DISCHARGE INSTRUCTIONS GIVEN AND EXPLAINED UTILIZING TEACH BACK METHOD TO PATIENT AND PATIENT. BOTH AND PATIENT VERBALIZED UNDERSTANDING. DISCHARGE TO [facility]. [phone] APPOINTMENT(S): PLEASE FOLLOW UP WITH DR. VILLA ON DECEMBER 16, 2019 AT 09:15AM Call office for any concerns 16/01 at FOLLOW UP WITH DR. POLK. [place] IS TO CALL YOU WITH APPOINTMENT. DR. POLK TO REFER YOU TO DR. [facility] TO FOLLOW UP WITH IN [address] DAVIS SOONER FOR ANY CONCERNS. CALL 911 OR GO TO EMERGENCY ROOM IF YOU HAVE ANY CHEST PAIN/DISCOMFORT, SHORTNESS OF BREATH/DIFFICULTY BREATHING OR NEEDED. Total Knee Arthroplasty Discharge Orders ACTIVITY: -Patient may ambulate as tolerated with walker, weight bearing as tolerated -When patient resting keep leg(s) elevated but avoid placing pillows under knees WOUND CARE: -Nurse to remove dressing on: 11/27/19 and continue daily dressing changes if needed after removing first dressing -Patient may shower and get dressing wet, follow nurse instructions to protect dressings battery DIET: -Resume patients previous home diet. MEDICATIONS: -Resume home medications as reviewed/instructed. -Have patient take prescription medications as instructed. -If patient needs refill on prescription pain medications, please have patient call a few days before patient takes their last pain pill. PHYSICAL THERAPY: Please follow therapist instructions for: -gait training with walker and weight bearing as tolerated, advance to cane as per therapist discretion -active/passive assisted flexion/extension exercises to operative knee(s) -quadriceps strengthening/hamstring stretching exercises to operative knee(s) -modalities as per physical therapist discretion Addendum: 11/26/19 at 1709 by HEIDI [facility] RN REPORT GIVEN TO SOFI GARCIA LVN FROM [facility], VERBALIZED UNDERSTANDING. Addendum: 11/26/19 at 1857 by HEIDI [facility] RN NOT DISCHARGED. Addendum: 11/26/19 at 1933 by HEIDI [facility] RN REPORT GIVEN TO SOFI GARCIA LVN, [facility], VERBALIZED UNDERSTANDING.
[2019-11-26] MEDS: SODIUM CHLORIDE 0.9% 1000ML 1,000 ML IV SCH (18:45)
[2019-11-26 19:47] VITALS: BP 108/59
[2019-11-26] MEDS ORDERED: HYDR-4457 PO (19:56)
[2019-11-26] MEDS ORDERED: ASPI-1005 PO (19:56)
[2019-11-26] MEDS ORDERED: FERS325 PO (20:17)
[2019-11-26] MEDS: **HM**(Folic Acid 0.8 MG PO SCH (21:00)
[2019-11-26] MEDS: MONTELUKAST SODIUM 10 MG TAB PO SCH (21:15)
--- NOTE | 2019-11-26 21:35 | NUR ---
DISCHARGE PATIENT WAS DISCHARGED AT THIS TIME. IV CATHETER TO RIGHT WRIST REMOVED, CATHETER TIP INTACT, NO BLEEDING OBSERVED FROM SITE. ALL PERSONAL BELONGINGS WERE RETURNED TO PATIENT. PATIENT ASSISTED BY RIVETER PNEUMATIC AND NURSE INTO WHEELCHAIR AND TAKEN DOWN TO PERSONAL VEHICLE. DISCHARGE INSTRUCTIONS GIVEN TO PATIENT AND PATIENT SPOUSE RA MODI AT THIS TIME, INSTRUCTED ON NEW MEDICATIONS AND PRESCRIPTIONS, IMPORTANCE OF VTE-ASPIRIN, TO CONTINUE HOME MEDICATIONS, FOLLOW UP APPOINTMENT WITH DR. VILLA, AND TO FOLLOW UP WITH PCP FOR REFERRAL TO DR. RYAN FROST. INSTRUCTED ON HOW TO MAINTAIN OLEARY CATHETER, AND HOW TO CARE FOR J CARLOS DRESSING (HOME HEALTH NURSE TO REMOVE J CARLOS DRESSING TOMORROW 11/27/19). PATIENT SPOUSE AND PATIENT VERBALIZED UNDERSTANDING OF INSTRUCTIONS. Addendum: 11/26/19 at 2314 by DARA NELSON RN Amended: Links added.
== END 2019-11-26 21:40 | disposition home health service (06) | DRG 469 ==
LOC: EDSTATUS 10:00 → DAHIP 11-20 07:09 → 3DH 11-20 16:08
PROVIDERS: ADMIT Orthopaedic Surgery; ATTEND Orthopaedic Surgery
PROC: 30233R1 Transfusion of Nonautologous Platelets into Peripheral Vein, Percutaneous Approach (ICD-10-PCS; 2019-11-20)
PROC: 0SRC0J9 Replacement of Right Knee Joint with Synthetic Substitute, Cemented, Open Approach (ICD-10-PCS; principal; 2019-11-20 12:11)
PROC: 3E0T3BZ Introduction of Anesthetic Agent into Peripheral Nerves and Plexi, Percutaneous Approach (ICD-10-PCS; 2019-11-20 12:11)
DX: M17.11 Unilateral primary osteoarthritis, right knee (principal); G93.41 Metabolic encephalopathy; D62 Acute posthemorrhagic anemia; N17.9 Acute kidney failure, unspecified; I12.9 Hypertensive chronic kidney disease with stage 1 through stage 4 chronic kidney disease, or unspecified chronic kidney disease; J44.9 Chronic obstructive pulmonary disease, unspecified; K74.60 Unspecified cirrhosis of liver; N18.9 Chronic kidney disease, unspecified; G89.29 Other chronic pain; M23.8X1 Other internal derangements of right knee; R26.9 Unspecified abnormalities of gait and mobility; K72.90 Hepatic failure, unspecified without coma; E03.9 Hypothyroidism, unspecified; F32.9 Major depressive disorder, single episode, unspecified; I95.81 Postprocedural hypotension; E11.22 Type 2 diabetes mellitus with diabetic chronic kidney disease; I25.10 Atherosclerotic heart disease of native coronary artery without angina pectoris; D69.59 Other secondary thrombocytopenia; R33.8 Other retention of urine; N40.1 Benign prostatic hyperplasia with lower urinary tract symptoms; E66.9 Obesity, unspecified; Z68.35 Body mass index [BMI] 35.0-35.9, adult; Z98.84 Bariatric surgery status; Z79.899 Other long term (current) drug therapy; Z99.89 Dependence on other enabling machines and devices
CPT/HCPCS: 36415; 36430; 71045; 76700; 76705; 80048; 80053; 81001; 82140; 82570; 83540; 83550; 84132; 84300; 85014; 85018; 85025; 85027; 85610; 85730; 86850; 86900; 86901; 87635; 87641; 94640; 94664; 97039; A4344; G0378; J0330; J0690; J1170; J1200; J1756; J2001; J2175; J2354; J2370; J2405; J2704; J2710; J3010; J3490; J7030; J7120; P9034; P9047